=== PATIENT | female | born 1970 | race Caucasian/White ===

== ENCOUNTER → 2017-02-28 | Outpatient (CLI) | payer OTHER | LOC: FLAB 12:00 | PROVIDERS: ATTEND Physician Assistant | DX: R06.02 Shortness of breath (principal); R91.8 Other nonspecific abnormal finding of lung field ==

== ENCOUNTER → 2017-09-03 | Outpatient (CLI) | payer OTHER | LOC: BMCIMAGING 11:13 | PROVIDERS: ATTEND Emergency Medicine | DX: M79.662 Pain in left lower leg (principal) ==

== ENCOUNTER 2018-03-23 22:01 | Emergency (ER) | payer OTHER ==
[2018-03-23 22:57] LABS: PLATELET COUNT 191 10^3/uL (150-400)
[2018-03-23] MEDS: NS 1,000 ML IV ONE (23:37)
[2018-03-23] MEDS ORDERED: IOPAMIDOL (ISOVUE-300) 100 ML BTL ONE (23:55)
--- NOTE | 2018-03-24 00:27 | EDPHY ---
H & P Stated Complaint: poss bowel obstruction x2 hours Time Seen by Provider: 03/23/18 23:10 HPI/ROS: HPI The patient presents with abdominal pain which has been present for the last 2 hr which is intermittent, in her upper abdomen, achy in nature and feels like prior bowel obstructions. Patient has had history of for SBO she believes which have resolved spontaneously. The patient reports nausea without any vomiting. Her last bowel movement was this morning and she is having some difficulty passing gas. REVIEW OF SYSTEMS 10 systems were reviewed and negative with the exception of the elements mentioned in the history of present illness. PMHx: Recurrent SBO Soc Hx: Lives independently PHYSICAL General Appearance: Alert, no distress Eyes: Pupils equal and round no pallor or injection ENT, Mouth: Mucous membranes moist Respiratory: There are no retractions, lungs are clear to auscultation Cardiovascular: Regular rate and rhythm Gastrointestinal: Abdomen is soft and non-tender, no masses, bowel sounds normal Neurological: A&O, moves all extremities Skin: Warm and dry, no rashes Musculoskeletal: Neck is supple non tender Extremities: symmetrical, full range of motion Psychiatric: Patient is oriented X 3, there is no agitation Source: Patient Exam Limitations: No limitations - Personal History LMP (Females 10-55): 1-7 Days Ago Current Tetanus/Diphtheria Vaccine: Yes Tetanus Vaccine Date: < 10 YEARS - Medical/Surgical History Hx Asthma: No Hx Chronic Respiratory Disease: No Hx Diabetes: Yes Hx Cardiac Disease: No Hx Renal Disease: No Hx Cirrhosis: No Hx Alcoholism: No Hx HIV/AIDS: No Hx Splenectomy or Spleen Trauma: No Other PMH: PMH- SBO, THYROID, ETOH (RECOVERING). PSH- RECTAL PROLAPSE - Social History Smoking Status: Former smoker Constitutional: Initial Vital Signs Temperature (C) 37.1 C 03/23/18 22:03 Heart Rate 80 03/23/18 22:03 Respiratory Rate 16 03/23/18 22:03 Blood Pressure 114/88 H 03/23/18 22:03 O2 Sat (%) 96 03/23/18 22:03 O2 Delivery Mode Room Air Allergies/Adverse Reactions: adhesive tape Allergy (Uncoded 02/22/13 20:29) Hives Home Medications: Medication Instructions Recorded Levothyroxine [Synthroid 137 mcg 68.5 mcg PO DAILY06 06/19/16 (*)] Sertraline HCl [Zoloft 50mg (*)] 150 mg PO DAILY 06/19/16 Adderall 10 MG (*) 03/23/18 Medical Decision Making - Diagnostics Imaging Results: Imaging Impressions Abdomen CT 03/23/18 23:49 Impression: 1. Constipation. 2. No evidence of mechanical bowel obstruction, abscess, or localized intra- abdominal inflammatory process. 3. Normal appendix. Findings discussed with Emergency Department physician, Dodie Carbajal MD at 03/24/2018 0:20. Differential Diagnosis: This is a 47-year-old female with history of recurrent SBO due to several prior abdominal operations, all have improved with conservative measures who now presents with intermittent abdominal pain associated with nausea. Differential diagnosis includes partial SBO, SBO, constipation. In the emergency department, patient had labs drawn which were unremarkable. She received IV fluids. CT scan was obtained which demonstrated constipation only without any evidence of obstruction. She was sent home with magnesium citrate. I have advised her to use MiraLax as well. She is happy with this plan. She is completely pain-free. - Data Points Laboratory Results: Laboratory Results 03/23/18 22:42 03/23/18 22:42 03/23/18 03/23/18 03/23/18 22:42 22:42 22:42 WBC 7.65 10^3/uL 10^3/uL (3.80-9.50) RBC 4.79 10^6/uL 10^6/uL (4.18-5.33) Hgb 15.2 g/dL g/dL (12.6-16.3) Hct 43.8 % % (38.0-47.0) MCV 91.4 fL fL (81.5-99.8) MCH 31.7 pg pg (27.9-34.1) MCHC 34.7 g/dL g/dL (32.4-36.7) RDW 11.9 % % (11.5-15.2) Plt Count 191 10^3/uL 10^3/uL (150-400) MPV 9.7 fL fL (8.7-11.7) Neut % (Auto) 61.3 % % (39.3-74.2) Lymph % (Auto) 28.6 % % (15.0-45.0) [place] % (Auto) 7.7 % % (4.5-13.0) Eos % (Auto) 1.4 % % (0.6-7.6) Baso % (Auto) 0.7 % % (0.3-1.7) Nucleat RBC Rel Count 0.0 % % (0.0-0.2) Absolute Neuts (auto) 4.69 10^3/uL 10^3/uL (1.70-6.50) Absolute Lymphs (auto) 2.19 10^3/uL 10^3/uL (1.00-3.00) Absolute Monos (auto) 0.59 10^3/uL 10^3/uL (0.30-0.80) Absolute Eos (auto) 0.11 10^3/uL 10^3/uL (0.03-0.40) Absolute Basos (auto) 0.05 10^3/uL 10^3/uL (0.02-0.10) Absolute Nucleated RBC 0.00 10^3/uL 10^3/uL (0-0.01) Immature Gran % 0.3 % % (0.0-1.1) Immature Gran # 0.02 10^3/uL 10^3/uL (0.00-0.10) Sodium 138 mEq/L mEq/L (135-145) Potassium 4.0 mEq/L mEq/L (3.3-5.0) Chloride 101 mEq/L mEq/L (97-110) Carbon Dioxide 29 mEq/l mEq/l (22-31) Anion Gap 8 mEq/L mEq/L (8-16) BUN 12 mg/dL mg/dL (7-23) Creatinine 0.8 mg/dL mg/dL (0.6-1.0) Estimated GFR > 60 Glucose 88 mg/dL mg/dL (70-100) Calcium 9.6 mg/dL mg/dL (8.5-10.4) Beta HCG, Qual NEGATIVE Medications Given: Discontinued Medications Sodium Chloride (Ns) 1,000 mls @ 0 mls/hr IV EDNOW ONE; Wide Open PRN Reason: Protocol Stop: 03/23/18 23:36 Last Admin: 03/23/18 23:37 Dose: 1,000 mls Magnesium Citrate (Magnesium Citrate) 300 ml PO ONCE ONE Stop: 03/24/18 00:28 Last Admin: 03/24/18 00:34 Dose: 300 ml Departure - Departure Disposition: Home, Routine, Self-Care Clinical Impression: Constipation Qualifiers: Constipation type: unspecified constipation type Qualified Code(s): K59.00 - Constipation, unspecified Abdominal pain Qualifiers: Abdominal location: generalized Qualified Code(s): R10.84 - Generalized abdominal pain Condition: Good Instructions: Constipation (ED) Additional Instructions: Your CT scan results showed that you have constipation. Because of this, I am recommending that you start on magnesium citrate tonight. Then you can start using MiraLax 17 g once daily. If your symptoms return, you should return to the emergency department for recheck. Referrals: NONE *PRIMARY CARE P,. [Primary Care Provider] - As per Instructions
[2018-03-24 00:34] VITALS: BP 114/71
[2018-03-24] MEDS: MAGNESIUM CITRATE 300 ML BOTTLE PO ONE (00:34)
== END 2018-03-24 00:39 | disposition home or self-care (01) ==
DX: K59.00 Constipation, unspecified (principal)
CPT/HCPCS: Q9967

== ENCOUNTER 2018-04-19 18:29 | Emergency (ER) | payer OTHER ==
--- NOTE | 2018-04-19 19:30 | EDPHY ---
H & P Stated Complaint: SOB/CP Time Seen by Provider: 04/19/18 19:18 HPI/ROS: CHIEF COMPLAINT: Shortness of breath HISTORY OF PRESENT ILLNESS: The patient is a 47-year-old female who comes to the emergency department complaining of shortness of breath for the last month and a half. She has not had a fever or cough. She states that she has occasional midsternal chest pain. No recent travel. No leg swelling. No hormone use other than thyroid the medicine. No recent trauma or injury. Severity: Moderate Modifying factors: Exacerbated by anxiety REVIEW OF SYSTEMS: Constitutional: denies: chills, fever, recent illness, recent injury EENTM: denies: blurred vision, double vision, nose congestion Respiratory: See HPI Cardiac: See HPI denies: irregular heart rate, lightheadedness, palpitations Gastrointestinal/Abdominal: denies: abdominal pain, diarrhea, nausea, vomiting, blood streaked stools Genitourinary: denies: dysuria, frequency, hematuria, pain Musculoskeletal: denies: joint pain, muscle pain Skin: denies: lesions, rash, jaundice, bruising Neurological: denies: headache, numbness, paresthesia, tingling, dizziness, weakness Hematologic/Lymphatic: denies: blood clots, easy bleeding, easy bruising Immunologic/allergic: denies: HIV/AIDS, transplant 10 systems reviewed and negative except as noted EXAM: GENERAL: Well-appearing, well-nourished and in no acute distress. HEAD: Atraumatic, normocephalic. EYES: Pupils equal round and reactive to light, extraocular movements intact, sclera anicteric, conjunctiva are normal. ENT: TMs normal, nares patent, oropharynx clear without exudates. Moist mucous membranes. NECK: Normal range of motion, supple without lymphadenopathy or JVD. LUNGS: Breath sounds clear to auscultation bilaterally and equal. No wheezes rales or rhonchi. HEART: Regular rate and rhythm without murmurs, rubs or gallops. ABDOMEN: Soft, nontender, normoactive bowel sounds. No guarding, no rebound. No masses appreciated. BACK: No CVA tenderness, no spinal tenderness, step-offs or deformities EXTREMITIES: Normal range of motion, no pitting or edema. No clubbing or cyanosis. NEUROLOGICAL: Cranial nerves II through XII grossly intact. Normal speech, normal gait. 5/5 strength, normal movement in all extremities, normal sensation , normal reflexes PSYCH: Normal mood, normal affect. SKIN: Warm, dry, normal turgor, no visible rashes or lesions. Source: Patient Exam Limitations: No limitations - Personal History LMP (Females 10-55): 8-14 Days Ago Current Tetanus/Diphtheria Vaccine: Yes Tetanus Vaccine Date: < 10 YEARS - Medical/Surgical History Hx Asthma: No Hx Chronic Respiratory Disease: No Hx Diabetes: No Hx Cardiac Disease: No Hx Renal Disease: No Hx Cirrhosis: No Hx Alcoholism: No Hx HIV/AIDS: No Hx Splenectomy or Spleen Trauma: No Other PMH: PMH- SBO, THYROID, ETOH (RECOVERING). PSH- RECTAL PROLAPSE - Family History Significant Family History: No pertinent family hx - Social History Smoking Status: Former smoker Alcohol Use: Sober Drug Use: None Constitutional: Initial Vital Signs Temperature (C) 37.0 C 04/19/18 18:34 Heart Rate 80 04/19/18 18:34 Respiratory Rate 18 04/19/18 18:34 Blood Pressure 121/86 H 04/19/18 18:34 O2 Sat (%) 96 04/19/18 18:34 O2 Delivery Mode Room Air Allergies/Adverse Reactions: adhesive tape Allergy (Uncoded 04/19/18 18:39) Hives Home Medications: Medication Instructions Recorded Levothyroxine [Synthroid 137 mcg 68.5 mcg PO DAILY06 06/19/16 (*)] Sertraline HCl [Zoloft 50mg (*)] 150 mg PO DAILY 06/19/16 Adderall 10 MG (*) 03/23/18 Medical Decision Making - Diagnostics EKG Interpretation: An EKG obtained and was read and documented in trace view. Please see trace view for full reading and report. Sinus rhythm, no acute ischemic changes Imaging Results: Imaging Impressions Chest X-Ray 04/19/18 18:42 Impression: No acute pulmonary disease. Imaging: Discussed imaging studies w/ scallop dredger Radiologist ED Course/Re-evaluation: The patient's lab work is reassuring. Her troponin is negative after several weeks of symptoms. She feels that this is likely anxiety driven but states that she has not had any new stressors recently. She is reassured but frustrated that there is no specific diagnosis. Her sats here are 99%. Will refer her to Cardiology. Differential Diagnosis: Partial list of the Differential diagnosis considered include but were not limited to; chest pain, musculoskeletal pain, PE, pleurisy and although unlikely based on the history and physical exam, I also considered pneumonia, pneumothorax, dissection, aneurysm. I discussed these differential diagnoses and the plan with the patient as well as the usual and expected course. The patient understands that the diagnosis is provisional and that in medicine we are not always correct and that further workup is often warranted. Usual and customary warnings were given. All of the patient's questions were answered. The patient was instructed to return to the emergency department should the symptoms at all worsen or return, otherwise to followup with the physician as we discussed. - Data Points Laboratory Results: Laboratory Results 04/19/18 19:40 04/19/18 19:40 04/19/18 04/19/18 10 19:44 19:40 19:40 WBC RBC Hgb Hct MCV MCH MCHC RDW Plt Count MPV Neut % (Auto) Lymph % (Auto) [place] % (Auto) Eos % (Auto) Baso % (Auto) Nucleat RBC Rel Count Absolute Neuts (auto) Absolute Lymphs (auto) Absolute Monos (auto) Absolute Eos (auto) Absolute Basos (auto) Absolute Nucleated RBC Immature Gran % Immature Gran # D-Dimer Sodium 135 mEq/L mEq/L (135-145) Potassium 3.8 mEq/L mEq/L (3.3-5.0) Chloride 103 mEq/L mEq/L (97-110) Carbon Dioxide 23 mEq/l mEq/l (22-31) Anion Gap 9 mEq/L mEq/L (6-14) BUN 26 mg/dL H mg/dL (7-23) Creatinine 0.9 mg/dL mg/dL (0.6-1.0) Estimated GFR > 60 Glucose 87 mg/dL mg/dL (70-100) Calcium 9.0 mg/dL mg/dL (8.5-10.4) POC Troponin I 0.00 ng/mL ng/mL (0.00-0.08) Beta HCG, Qual NEGATIVE 04/19/18 04/19/18 19:40 19:40 WBC 6.92 10^3/uL 10^3/uL (3.80-9.50) RBC 4.46 10^6/uL 10^6/uL (4.18-5.33) Hgb 14.0 g/dL g/dL (12.6-16.3) Hct 40.9 % % (38.0-47.0) MCV 91.7 fL fL (81.5-99.8) MCH 31.4 pg pg (27.9-34.1) MCHC 34.2 g/dL g/dL (32.4-36.7) RDW 12.2 % % (11.5-15.2) Plt Count 170 10^3/uL 10^3/uL (150-400) MPV 9.6 fL fL (8.7-11.7) Neut % (Auto) 64.8 % % (39.3-74.2) Lymph % (Auto) 26.0 % % (15.0-45.0) [place] % (Auto) 7.1 % % (4.5-13.0) Eos % (Auto) 1.3 % % (0.6-7.6) Baso % (Auto) 0.7 % % (0.3-1.7) Nucleat RBC Rel Count 0.0 % % (0.0-0.2) Absolute Neuts (auto) 4.48 10^3/uL 10^3/uL (1.70-6.50) Absolute Lymphs (auto) 1.80 10^3/uL 10^3/uL (1.00-3.00) Absolute Monos (auto) 0.49 10^3/uL 10^3/uL (0.30-0.80) Absolute Eos (auto) 0.09 10^3/uL 10^3/uL (0.03-0.40) Absolute Basos (auto) 0.05 10^3/uL 10^3/uL (0.02-0.10) Absolute Nucleated RBC 0.00 10^3/uL 10^3/uL (0-0.01) Immature Gran % 0.1 % % (0.0-1.1) Immature Gran # 0.01 10^3/uL 10^3/uL (0.00-0.10) D-Dimer < 0.27 ug/mLFEU ug/mLFEU (0.00-0.50) Sodium Potassium Chloride Carbon Dioxide Anion Gap BUN Creatinine Estimated GFR Glucose Calcium POC Troponin I Beta HCG, Qual Point of Care Test Results: Chemistry 04/19/18 19:44 POC Troponin I 0.00 ng/mL ng/mL (0.00-0.08) Departure - Departure Disposition: Home, Routine, Self-Care Clinical Impression: Shortness of breath Chest pain Qualifiers: Chest pain type: unspecified Qualified Code(s): R07.9 - Chest pain, unspecified Condition: Fair Instructions: Chest Pain (ED) Referrals: Slava Scott MD [Primary Care Provider] - 1-2 days without fail Palma Whitmore MD [Medical Doctor] - 1-2 days without fail
--- NOTE | 2018-04-19 19:44 | CPEKG ---
Test Reason : OPEN Blood Pressure : / mmHG Vent. Rate : 069 BPM Atrial Rate : 069 BPM P-R Int : 174 ms QRS Dur : 088 ms QT Int : 404 ms P-R-T Axes : 067 053 035 degrees QTc Int : 433 ms Sinus rhythm Confirmed by Jerson Gonzalez ([id number]) on 04/19/2018 7:43:46 PM Referred By: Confirmed By:Jerson Gonzalez
[2018-04-19 19:52] LABS: PLATELET COUNT 170 10^3/uL (150-400)
[2018-04-19 20:35] VITALS: BP 100/81
== END 2018-04-19 20:33 | disposition home or self-care (01) ==
DX: R06.02 Shortness of breath (principal); R07.9 Chest pain, unspecified
CPT/HCPCS: 84484-PO

== ENCOUNTER 2018-11-19 00:41 | Inpatient (IN) | payer OTHER ==
[2018-11-19] MEDS ORDERED: HYDROmorphONE/DILAUDID 1 MG/ML INJ IVP ONE ×2 (00:59→02:53)
[2018-11-19] MEDS ORDERED: ONDANSETRON 4 MG/2 ML VIAL IVP ONE (00:59)
[2018-11-19] MEDS ORDERED: NS 1,000 ML IV ONE (00:59)
--- NOTE | 2018-11-19 01:02 | EDPHY ---
H & P Stated Complaint: ABD PAIN, N,V THINKS SHE KEVIN A BOWEEL OBSTRUCTION Time Seen by Provider: 11/19/18 00:49 HPI/ROS: Chief Complaint: Abdominal pain, nausea, vomiting HPI: 48-year-old woman with a history of multiple abdominal surgeries including a rectal prolapse repair, x2, cholecystectomy is presenting with abdominal pain nausea vomiting she began earlier today. Patient states her symptoms are consistent with prior small-bowel obstructions. Pain is about an 8/10. She has had multiple soles of vomiting. No diarrhea. She does have a history of chronic constipation. Is also complaining of low back pain on the right-hand side. No urinary urgency or frequency. No fevers or chills. No chest pain or shortness of breath. ROS: 10 systems were reviewed and were negative except those elements noted in the HPI. PMH: Obstructions, rectal prolapse repair, C-sections x2, cholecystectomy Social History: No smoking, no alcohol, no recreational drug use Family History: non-contributory Physical Exam: Gen: Awake, Alert, uncomfortable appearing HEENT: Nose: no rhinorrhea Eyes: PERRLA, EOMI Mouth: Moist mucosa Neck: Supple, no JVD Chest: nontender, lungs clear to auscultation Heart: S1, S2 normal, no murmur Abd: Soft, non-tender, no guarding Back: no CVA tenderness, no midline tenderness Ext: no edema, non-tender Skin: no rash Neuro: CN II-XII intact, Sensation grossly intact, Strength 5/5 in bilateral upper and lower extremities - Personal History Current Tetanus/Diphtheria Vaccine: Yes Current Tetanus Diphtheria and Acellular Pertussis (TDAP): Yes Tetanus Vaccine Date: < 10 YEARS - Medical/Surgical History Hx Asthma: No Hx Chronic Respiratory Disease: No Hx Diabetes: No Hx Cardiac Disease: No Hx Renal Disease: No Hx Cirrhosis: No Hx Alcoholism: No Hx HIV/AIDS: No Hx Splenectomy or Spleen Trauma: No Other PMH: PMH- SBO, THYROID, ETOH (RECOVERING). PSH- RECTAL PROLAPSE - Social History Smoking Status: Former smoker Constitutional: Initial Vital Signs Temperature (C) 36.6 C 11/19/18 00:44 Heart Rate 93 11/19/18 00:44 Respiratory Rate 18 11/19/18 00:44 Blood Pressure 82/61 L 11/19/18 00:44 O2 Sat (%) 96 11/19/18 00:44 O2 Delivery Mode Room Air Allergies/Adverse Reactions: adhesive tape Allergy (Uncoded 11/19/18 00:46) Hives Home Medications: Medication Instructions Recorded Levothyroxine [Synthroid 137 mcg 68.5 mcg PO DAILY06 06/19/16 (*)] Sertraline HCl [Zoloft 50mg (*)] 150 mg PO DAILY 06/19/16 Adderall 10 MG (*) 03/23/18 Medical Decision Making - Diagnostics Imaging Results: EXAM: CT Abdomen and Pelvis with Intravenous Contrast CLINICAL HISTORY: Abdominal pain, possible SBO TECHNIQUE: Axial computed tomography images of the abdomen and pelvis with intravenous contrast. CONTRAST: With; ISOVUE 300 100ml COMPARISON: CT abdomen and pelvis 06/19/2016 FINDINGS: LUNG BASES: No basilar airspace consolidation or pleural effusion. LIVER: Unremarkable. GALLBLADDER AND BILE DUCTS: Surgically absent. PANCREAS: Unremarkable. SPLEEN: Unremarkable. ADRENAL GLANDS: Unremarkable. KIDNEYS, URETERS, AND BLADDER: Unremarkable. No hydronephrosis or nephrolithiasis. No ureteral or bladder calculi. STOMACH AND BOWEL: Multiple dilated fluid-filled loops of small bowel centrally within the abdomen measuring up to 3.3 cm. Some segments of blue demonstrating circumferential wall thickening and hyperenhancement, axial image 49/83. There is equalization of some small bowel loops to get a bone slow transit. There is vascular engorgement of the central mesentery. No hypoenhancing bowel melendez. Multiple loops closely abutting the ventral peritoneal surface. Surgical changes of the distal colon. APPENDIX: No CT evidence for appendicitis. PERITONEUM: No free fluid. No free air. LYMPH NODES: No lymphadenopathy. REPRODUCTIVE: Unremarkable as visualized. Prior . VASCULATURE: No aortic aneurysm. BONES: No fracture or suspicious osseous abnormality. ABDOMINAL WALL AND SOFT TISSUES: Unremarkable. IMPRESSION: Multiple dilated segments of fluid-filled small bowel loops which are closely opposed to the ventral peritoneal surface suggestive of adhesions. Central mesenteric venous engorgement. No high-grade bowel obstruction or evidence of infarction. Large colonic stool burden. ELECTRONICALLY SIGNED BY: Yayo Celeste DO November 19, 2018 2:00:26 AM MDT ED Course/Re-evaluation: CT scan results noted tree consistent with small-bowel obstruction. I discussed with Dr. Moreno. He will consult on the patient. He is requesting admission to the hospitalist. I have paged Dr. Hernandez. - Data Points Laboratory Results: Laboratory Results 11/19/18 01:00 11/19/18 01:00 11/19/18 11/19/18 11/19/18 01:00 01:00 01:00 WBC 14.29 10^3/uL H 10^3/uL (3.80-9.50) RBC 5.08 10^6/uL 10^6/uL (4.18-5.33) Hgb 16.1 g/dL g/dL (12.6-16.3) Hct 46.5 % % (38.0-47.0) MCV 91.5 fL fL (81.5-99.8) MCH 31.7 pg pg (27.9-34.1) MCHC 34.6 g/dL g/dL (32.4-36.7) RDW 11.9 % % (11.5-15.2) Plt Count 237 10^3/uL 10^3/uL (150-400) MPV 9.3 fL fL (8.7-11.7) Neut % (Auto) 79.4 % H % (39.3-74.2) Lymph % (Auto) 12.2 % L % (15.0-45.0) [place] % (Auto) 6.0 % % (4.5-13.0) Eos % (Auto) 1.2 % % (0.6-7.6) Baso % (Auto) 0.4 % % (0.3-1.7) Nucleat RBC Rel Count 0.0 % % (0.0-0.2) Absolute Neuts (auto) 11.34 10^3/uL H 10^3/uL (1.70-6.50) Absolute Lymphs (auto) 1.75 10^3/uL 10^3/uL (1.00-3.00) Absolute Monos (auto) 0.86 10^3/uL H 10^3/uL (0.30-0.80) Absolute Eos (auto) 0.17 10^3/uL 10^3/uL (0.03-0.40) Absolute Basos (auto) 0.06 10^3/uL 10^3/uL (0.02-0.10) Absolute Nucleated RBC 0.00 10^3/uL 10^3/uL (0-0.01) Immature Gran % 0.8 % % (0.0-1.1) Immature Gran # 0.11 10^3/uL H 10^3/uL (0.00-0.10) Sodium 138 mEq/L mEq/L (135-145) Potassium 3.7 mEq/L mEq/L (3.5-5.2) Chloride 102 mEq/L mEq/L (97-110) Carbon Dioxide 26 mEq/l mEq/l (22-31) Anion Gap 10 mEq/L mEq/L (6-14) BUN 17 mg/dL mg/dL (7-23) Creatinine 0.9 mg/dL mg/dL (0.6-1.0) Estimated GFR > 60 Glucose 110 mg/dL H mg/dL (70-100) Calcium 9.7 mg/dL mg/dL (8.5-10.4) Total Bilirubin 0.3 mg/dL mg/dL (0.1-1.4) AST 30 IU/L IU/L (14-46) ALT 34 IU/L IU/L (9-52) Alkaline Phosphatase 66 IU/L IU/L (38-126) Total Protein 7.4 g/dL g/dL (6.3-8.2) Albumin 4.6 g/dL g/dL (3.5-5.0) Lipase 87 IU/L IU/L (23-300) Beta HCG, Qual NEGATIVE Medications Given: Discontinued Medications Hydromorphone HCl (Dilaudid) 0.5 mg IVP EDNOW ONE Stop: 11/19/18 01:00 Last Admin: 11/19/18 01:30 Dose: 0.5 mg Sodium Chloride (Ns) 1,000 mls @ 0 mls/hr IV ONCE ONE; Wide Open PRN Reason: Protocol Stop: 11/19/18 01:00 Last Admin: 11/19/18 01:24 Dose: 1,000 mls Ondansetron HCl (Zofran) 4 mg IVP EDNOW ONE Stop: 11/19/18 01:00 Last Admin: 11/19/18 01:24 Dose: 4 mg Departure - Departure Disposition: [facility] Acute Clinical Impression: Bowel obstruction Condition: Fair Referrals: Slava Scott MD [Primary Care Provider] - As per Instructions
[2018-11-19 01:15] LABS: PLATELET COUNT 237 10^3/uL (150-400)
[2018-11-19] MEDS ORDERED: IOPAMIDOL (ISOVUE-300) 100 ML BTL ONE (01:19)
[2018-11-19] MEDS ORDERED: ONDANSETRON 4 MG/2 ML VIAL IVP PRN ×2 (02:18→02:55)
[2018-11-19] MEDS ORDERED: ONDANSETRON DISINTEGRATING 4 MG TAB PO PRN (02:18)
[2018-11-19] MEDS ORDERED: ACETAMINOPHEN 325 MG TAB PO PRN (02:18)
--- NOTE | 2018-11-19 02:53 | SOAPPROG ---
SOAP Progress Note Assessment/Plan: Assessment: 48 female with recurrent sbo phx carlos alberto, rectopexy, meds aderal, synthroid, zoloft all tape heent nonicteric chest clear cor rr abd soft, distended, nontender, midline lower scar Plan:admit, ivs, ng, 2way in am/ surgery if fails to resolve 11/19/18 02:50 Objective: Vital Signs Temp Pulse Resp BP Pulse Ox 36.6 C 77 16 103/61 93 11/19/18 00:44 11/19/18 02:05 11/19/18 02:05 11/19/18 02:05 11/19/18 02:05 ICD10 Worksheet Patient Problems: Problems Problem Status Onset Bowel obstruction Acute
[2018-11-19] MEDS: PROMETHAZINE HCL 25 MG/ML INJ IVP PRN ×2 (03:05→12:47)
--- NOTE | 2018-11-19 03:25 | PDGENHP ---
History and Physical - Chief Complaint Nausea, abdominal pain - History of Present Illness 48 yo F w/ hx of multiple abdominal surgeries and prior bouts of SBO presents with nausea, vomiting, and abdominal pain. Her symptoms developed this afternoon when she first noticed nausea. This then progressed to vomiting and abdominal pain. She was initially improved after therapy in the ED but her symptoms have now returned. A CT scan in the ED is suggestive of SBO. She is being admitted for management of this. Review of the EMR shows that she was last admitted for this in 2016. During that episode she resolved with medical management only. Dr. Cornelius Moreno was consulted in the ED and has evaluated the patient. Case discussed with ED physician Dr. Talley. History Information - Allergies/Home Medication List Allergies/Adverse Reactions: adhesive tape Allergy (Uncoded 11/19/18 00:46) Hives Home Medications: Levothyroxine [Synthroid 137 mcg (*)] 68.5 mcg PO DAILY06 06/19/16 [Last Taken 06/19/16] Sertraline HCl [Zoloft 50mg (*)] 150 mg PO DAILY 06/19/16 [Last Taken 06/19/16] Adderall 10 MG (*) 03/23/18 [Last Taken Unknown] I have personally reviewed and updated: family history, medical history - Past Medical History Additional medical history: Hypothyroid. ADHD. Depression - Surgical History Reports: cholecystectomy Additional surgical history: Rectopexy. - Family History Additional family history: No family hx of IBD - Social History Smoking Status: Former smoker Review of Systems Review of Systems: ROS: 10pt was reviewed & negative except for what was stated in HPI & below Physical Exam Physical Exam: Temp Pulse Resp BP Pulse Ox 36.6 C 77 16 103/61 93 11/19/18 00:44 11/19/18 02:05 11/19/18 02:05 11/19/18 02:05 11/19/18 02:05 Constitutional: appears nourished, uncomfortable Eyes: PERRL, EOMI Ears, Nose, Mouth, Throat: moist mucous membranes, no oral mucosal ulcers Cardiovascular: regular rate and rhythym, no murmur, rub, or gallop Respiratory: no respiratory distress, clear to auscultation Gastrointestinal: tenderness (Diffuse), distension, No guarding, No rebound Skin: warm, normal color Musculoskeletal: full muscle strength, no muscle tenderness Neurologic: AAOx3, CN II-XII Intact Psychiatric: interacting appropriately, anxious Lab Data & Imaging Review 11/19/18 01:00 11/19/18 01:00 WBC 14.29 10^3/uL (3.80-9.50) H 11/19/18 01:00 RBC 5.08 10^6/uL (4.18-5.33) 11/19/18 01:00 Hgb 16.1 g/dL (12.6-16.3) 11/19/18 01:00 Hct 46.5 % (38.0-47.0) 11/19/18 01:00 MCV 91.5 fL (81.5-99.8) 11/19/18 01:00 MCH 31.7 pg (27.9-34.1) 11/19/18 01:00 MCHC 34.6 g/dL (32.4-36.7) 11/19/18 01:00 RDW 11.9 % (11.5-15.2) 11/19/18 01:00 Plt Count 237 10^3/uL (150-400) 11/19/18 01:00 MPV 9.3 fL (8.7-11.7) 11/19/18 01:00 Neut % (Auto) 79.4 % (39.3-74.2) H 11/19/18 01:00 Lymph % (Auto) 12.2 % (15.0-45.0) L 11/19/18 01:00 [place] % (Auto) 6.0 % (4.5-13.0) 11/19/18 01:00 Eos % (Auto) 1.2 % (0.6-7.6) 11/19/18 01:00 Baso % (Auto) 0.4 % (0.3-1.7) 11/19/18 01:00 Nucleat RBC Rel Count 0.0 % (0.0-0.2) 11/19/18 01:00 Absolute Neuts (auto) 11.34 10^3/uL (1.70-6.50) H 11/19/18 01:00 Absolute Lymphs (auto) 1.75 10^3/uL (1.00-3.00) 11/19/18 01:00 Absolute Monos (auto) 0.86 10^3/uL (0.30-0.80) H 11/19/18 01:00 Absolute Eos (auto) 0.17 10^3/uL (0.03-0.40) 11/19/18 01:00 Absolute Basos (auto) 0.06 10^3/uL (0.02-0.10) 11/19/18 01:00 Absolute Nucleated RBC 0.00 10^3/uL (0-0.01) 11/19/18 01:00 Immature Gran % 0.8 % (0.0-1.1) 11/19/18 01:00 Immature Gran # 0.11 10^3/uL (0.00-0.10) H 11/19/18 01:00 Sodium 138 mEq/L (135-145) 11/19/18 01:00 Potassium 3.7 mEq/L (3.5-5.2) 11/19/18 01:00 Chloride 102 mEq/L (97-110) 11/19/18 01:00 Carbon Dioxide 26 mEq/l (22-31) 11/19/18 01:00 Anion Gap 10 mEq/L (6-14) 11/19/18 01:00 BUN 17 mg/dL (7-23) 11/19/18 01:00 Creatinine 0.9 mg/dL (0.6-1.0) 11/19/18 01:00 Estimated GFR > 60 11/19/18 01:00 Glucose 110 mg/dL (70-100) H 11/19/18 01:00 Calcium 9.7 mg/dL (8.5-10.4) 11/19/18 01:00 Total Bilirubin 0.3 mg/dL (0.1-1.4) 11/19/18 01:00 AST 30 IU/L (14-46) 11/19/18 01:00 ALT 34 IU/L (9-52) 11/19/18 01:00 Alkaline Phosphatase 66 IU/L (38-126) 11/19/18 01:00 Total Protein 7.4 g/dL (6.3-8.2) 11/19/18 01:00 Albumin 4.6 g/dL (3.5-5.0) 11/19/18 01:00 Lipase 87 IU/L (23-300) 11/19/18 01:00 Beta HCG, Qual NEGATIVE 11/19/18 01:00 Assessment & Plan Assessment: 48 yo F w/ hx of multiple abdominal surgeries and bouts of SBO presents with recurrent SBO. Plan: 1. SBO, recurrent - In the setting of multiple abdominal surgeries. CT scan reveals multiple loops of dilated small bowel. She was last admitted for the same in 2015. - Admit for observation - Will place NGT - Repeat abdominal XR in the AM - NPO, mIVF - Anti-emetics, pain control PRN - Surgery (Dr. Moreno) consulted, appreciate assistance 2. Hypothyroid - Continue LTX once able to take PO 3. Depression Diet - NPO, mIVF Code - Full Ppx - SCDs Dispo - Admit under observation status
[2018-11-19] MEDS: NS 1,000 ML IV SCH (03:53)
[2018-11-19 08:15] LABS: PLATELET COUNT 207 10^3/uL (150-400)
--- NOTE | 2018-11-19 08:55 | SOAPPROG ---
SOAP Progress Note Assessment/Plan: Assessment/Plan: 48 Y F c recurrent SBO. Hx carlos alberto, csxn. SBO's occur about once a year, never has needed surgery for it. Continue bowel rest, NG decompression, and supportive care. AXR today. Suspect she may need surgery. If AXR better, then might clamp tube and start clears +/- SBFT. S: not passing gas. more comfortable. no nausea. cramping improved. concerned that she's missing her kids' end of year school activities. O: alert, nad ncat, ng in place mmm ctab anteriorly rrr abd soft, rare BS 11/19/18 08:53 Objective: Vital Signs Temp Pulse Resp BP Pulse Ox 36.9 C 66 16 119/74 94 11/19/18 07:41 11/19/18 07:41 11/19/18 07:41 11/19/18 07:41 11/19/18 07:41 Laboratory Results 11/19/18 08:10 11/19/18 08:10 11/18/18 11/19/18 11/20/18 05:59 05:59 05:59 Intake Total 1300 Output Total 350 200 Balance 950 -200 ICD10 Worksheet Patient Problems: Problems Problem Status Onset Bowel obstruction Acute
[2018-11-19] MEDS: HYDROmorphONE/DILAUDID 1 MG/ML INJ IVP PRN ×3 (09:52→21:15)
[2018-11-19] MEDS ORDERED: ACETAMINOPHEN 650 MG SUPP PR PRN (12:53)
--- NOTE | 2018-11-19 15:06 | PDMN ---
Medical Necessity Medical necessity: Change to inpt as of 11/19/18, meets inpt criteria per MD order and MCG M-210, Intestinal Obstruction, 2 days, inpt adm indicated for: SBO requiring NG decompression and supportive care, IV Dilaudid for pain, IV Phenergan for nausea. 48 y/o w/hx mult abd surgeries admitted for recurrent SBO (last adm for this in 2015). Initial CT revealed mult loops of dilated sm bowel , abd x-ray this AM suggests continued ileus/bowel obstruction. Est LOS>2MN for ongoing eval/management of above.
--- NOTE | 2018-11-19 15:19 | HOSPPROG ---
Hospitalist Progress Note Assessment/Plan: 48 [facility], admitted with recurrentl SBO. 1. SBO, recurrent - In the setting of multiple abdominal surgeries. I reviewed the CT scan and ab film today. consistent with SBO. - Looks worse today clinically with severe nausea and vomiting and pain, requiring IV dilaudid and repeated doses of phenergan. - Repeat abdominal film pending - NPO, mIVF - Anti-emetics, pain control PRN - Discussed with surgery, may need Or if fails to improve with medical therapy. 2. Hypothyroid - Continue LTX once able to take PO 3. Depression 4)intractable NV- due to SBO. NG in place, zofran, phenergan ordered. surgery consulted. Diet - NPO, mIVF Code - Full Ppx - SCDs Dispo - change to inp. Subjective: patient actively repeated throwing up, with terrible pain, and headache. Objective: Vital Signs Temp Pulse Resp BP Pulse Ox 36.7 C 82 16 101/71 94 11/19/18 12:34 11/19/18 12:34 11/19/18 12:34 11/19/18 12:34 11/19/18 12:34 - Physical Exam Constitutional: obese, uncomfortable Eyes: PERRL, anicteric sclera, EOMI Ears, Nose, Mouth, Throat: moist mucous membranes, hearing normal, ears appear normal, no oral mucosal ulcers Cardiovascular: regular rate and rhythym, no murmur, rub, or gallop Respiratory: no respiratory distress, no rales or rhonchi, clear to auscultation Gastrointestinal: distension, other (absent bowel sounds, TTP diffusely, no guarding. ) Genitourinary: no bladder fullness, no bladder tenderness, no renal bruits Skin: no rashes or abrasions, no fluctuance, no induration Musculoskeletal: full muscle strength, no muscle tenderness, normal joint ROM Neurologic: AAOx3, sensation intact bilaterally Psychiatric: interacting appropriately, not anxious, not encephalopathic, thought process linear Lymph, Heme, Immunologic: no cervical LAD, no supraclavicular LAD ICD10 Worksheet Patient Problems: Problems Problem Status Onset Bowel obstruction Acute
[2018-11-19] MEDS ORDERED: BENZOCAINE 57 G CAN HURRICAINE MM PRN (16:09)
--- NOTE | 2018-11-19 18:56 | SOAPPROG ---
SOAP Progress Note Assessment/Plan: Assessment: 48 female with recurrent sbo phx carlos alberto, rectopexy, meds aderal, synthroid, zoloft all tape heent nonicteric chest clear cor rr abd soft, distended, nontender, midline lower scar Plan:admit, ivs, ng, 2way in am/ surgery if fails to resolve 11/19/18 02:50 11/19/18 18:56 AFEBRILE WITH NORMAL WHITE COUNT BUT STILL NO FLATUS OR BOWEL MOVEMENT/SOME DRY HEAVES WITH THE NG CLEAN DO A SUGGEST CONSTIPATION RATHER THAN SMALL-BOWEL OBSTRUCTION AT THIS POINT ABDOMEN SOFT NONDISTENDED PLAN CONTINUE NG SUCTION OVERNIGHT Objective: Vital Signs Temp Pulse Resp BP Pulse Ox 36.6 C 74 16 110/80 92 11/19/18 16:24 11/19/18 16:24 11/19/18 16:24 11/19/18 16:24 11/19/18 16:24 11/18/18 11/19/18 11/20/18 05:59 05:59 05:59 Intake Total 1195 Output Total 450 Balance 745 ICD10 Worksheet Patient Problems: Problems Problem Status Onset Bowel obstruction Acute
[2018-11-20] MEDS: NS 1,000 ML IV SCH (00:07)
[2018-11-20] MEDS: PROMETHAZINE HCL 25 MG/ML INJ IVP PRN (01:22)
[2018-11-20] MEDS: LEVOTHYROXINE 75 MCG TAB PO SCH (06:44)
[2018-11-20] MEDS: HYDROmorphONE/DILAUDID 1 MG/ML INJ IVP PRN (06:45)
[2018-11-20] MEDS: SERTRALINE HCL 50 MG TAB PO SCH (08:25)
--- NOTE | 2018-11-20 13:52 | HOSPPROG ---
Hospitalist Progress Note Assessment/Plan: 48 year old female [facility] of [facility], admitted with recurrentl SBO. 1. SBO, recurrent - In the setting of multiple abdominal surgeries. I reviewed the CT scan and ab film today. consistent with SBO. - Looks worse today clinically with severe nausea and vomiting and pain, requiring IV dilaudid and repeated doses of phenergan. - Repeat abdominal film today reviewed by myself and looks improved. - NPO, mIVF - Anti-emetics, pain control PRN - Discussed with surgery, sbft today, depending on results, might consider removing NGT and advancing to clears. 2. Hypothyroid - Continue LTX once able to take PO 3. Depression 4)intractable NV- due to SBO. NG in place, zofran, phenergan ordered. surgery consulted. Diet - NPO, mIVF Code - Full Ppx - SCDs Dispo - remain inp Subjective: feels better. No ab pain. mild headache. Objective: Vital Signs Temp Pulse Resp BP Pulse Ox 36.6 C 94 18 115/86 H 93 11/20/18 12:00 11/20/18 12:00 11/20/18 12:00 11/20/18 12:00 11/20/18 12:00 11/19/18 11/20/18 11/21/18 05:59 05:59 05:59 Intake Total 1395 Output Total 450 675 Balance 945 -675 - Physical Exam Constitutional: obese, uncomfortable Eyes: PERRL, anicteric sclera, EOMI Ears, Nose, Mouth, Throat: moist mucous membranes, hearing normal, ears appear normal, no oral mucosal ulcers Cardiovascular: regular rate and rhythym, no murmur, rub, or gallop Respiratory: no respiratory distress, no rales or rhonchi, clear to auscultation Gastrointestinal: soft, non-tender abdomen, other (decreased bowel sounds, but present. ) Genitourinary: no bladder fullness, no bladder tenderness, no renal bruits Skin: no rashes or abrasions, no fluctuance, no induration Musculoskeletal: full muscle strength, no muscle tenderness, normal joint ROM Neurologic: AAOx3, sensation intact bilaterally Psychiatric: interacting appropriately, not anxious, not encephalopathic, thought process linear Lymph, Heme, Immunologic: no cervical LAD, no supraclavicular LAD ICD10 Worksheet Patient Problems: Problems Problem Status Onset Bowel obstruction Acute
--- NOTE | 2018-11-20 15:16 | ASMTCMCOM ---
CM Note CM Note Notes: Pt is a 48 y/o female admitted for nausea and abdominal pain. Pt will most likely d/c home without any needs when medically stable. No therapies ordered at this time. CM available for changes. Plan: Independent Date Signed: 11/20/2018 03:15 PM Electronically Signed By:RHEA Cornejo
[2018-11-20] MEDS ORDERED: LORazepam 0.5 MG TAB PO PRN (15:31)
[2018-11-21] MEDS: LEVOTHYROXINE 75 MCG TAB PO SCH (05:38)
[2018-11-21 07:07] VITALS: BP 126/76
[2018-11-21] MEDS: SERTRALINE HCL 50 MG TAB PO SCH (08:08)
--- NOTE | 2018-11-21 11:02 | SOAPPROG ---
SOAP Progress Note Assessment/Plan: Assessment/plan: 48 y/o F admitted with recurrent SBO SBFT yesterday showed normal transit time. Tolerating regular diet. Passing flatus and having BMs. Dispo: d/c home today. S: Feeling much better. Denies pain. O: Alert Afebrile RRR No increased WOB Abdomen soft, nontender, normoactive BS 11/21/18 11:00 Objective: Vital Signs Temp Pulse Resp BP Pulse Ox 36.9 C 70 16 126/76 H 93 11/21/18 07:05 11/21/18 07:05 11/21/18 07:05 11/21/18 07:05 11/21/18 07:05 11/20/18 11/21/18 11/22/18 05:59 05:59 05:59 Intake Total 1395 2400 Output Total 450 675 Balance 945 1725 ICD10 Worksheet Patient Problems: Problems Problem Status Onset Bowel obstruction Acute
--- NOTE | 2018-11-21 15:25 | ASDISCHSUM ---
Discharge Information Plan Status:Home with No Needs Medically Cleared to Leave: Discharge Date:11/21/2018 11:12 AM CM D/C Disposition:Home, Routine, Self-Care ADT D/C Disposition:Home, Routine, Self-Care Projected Discharge Date:11/21/2018 11:12 AM Transportation at D/C:Self Discharge Delay Reason: Follow-Up Date:11/21/2018 11:12 AM Discharge Slot: Final Diagnosis: Placement Information Patient Contact Information Contact Name:LUISITO Relationship: Address:[address] [place] [address] Work Phone: City:[place] Alternate Phone: [facility]/Zip Code:[place] [address] Email: Financial Information Financial Class:BC Primary Plan Desc:[facility] Primary Plan Number:[id number] Secondary Plan Desc: Secondary Plan Number: Assessment Information LACE LACE Length of stay for Answers: 1 day current admission Acuity / Level of Answers: Yes Care: Did the patient have an inpatient admission? Comorbidities - select Answers: Opioid dependence all that apply / Chronic pain Other Notes: Hypothyroid # of Emergency department Answers: 1-2 visits in the last 6 months Social determinants Answers: Mental health diagnosis (anxiety, depression, pers onality disorders, etc.) Score: 13 Date Signed: 11/21/2018 03:23 PM Electronically Signed By:RHEA Cortes [facility] CM Progress Note CM Note CM Note Notes: Pt is a 48 y/o female admitted for nausea and abdominal pain. Pt will most likely d/c home without any needs when medically stable. No therapies ordered at this time. CM available for changes. Plan: Independent Date Signed: 11/20/2018 03:15 PM Electronically Signed By:RHEA Cornejo Case Management Discharge Plan Note Case Management Discharge Discharge Order Complete? Answers: Yes Patient to Obtain Answers: Independently Medications Discharge Comments Notes: Pt is being discharged independently. CM provided her with clothes to go home in per her request. Pt said she was going to take a lyft home and did not need help obtaining meds or with follow-up appts. No other CM needs identified at this time. Date Signed: 11/21/2018 03:23 PM Electronically Signed By:RHEA Cortes Intervention Information
--- NOTE | 2018-11-21 16:50 | PDDCSUM ---
Discharge Summary Discharge Summary: Date of Admission: 11/19/2018 Date of Discharge: 11/21/2018 Consultants: general surgery Discharge Diagnoses: 1. Small bowel obstruction, resolved 2. Nausea/vomiting, resolved 3. Hypothyroidism Brief Hospital Course: 48yo F with history of recurrent SBO related to adhesions from prior intra- abdominal surgeries presented with intractable nausea and vomiting found to have SBO. She was treated conservatively and with nasogastric tube decompression. General surgery was consulted. She slowly improved. A small bowel follow through showed resolution of obstruction and normal small bowel transit time. Her diet advanced and she was tolerating PO at time of discharge. Medications: Please refer to EMR for complete list. No changes were made. Follow Up Plan: 1. PCP visit in 1-2 weeks. Consider general surgery outpatient follow up for recurrent SBO. Physical Exam: Vitals reviewed, afebrile. Alert and oriented, rrr, lungs clear, abdomen soft and nt, no leg edema, no rashes.
--- NOTE | 2018-11-27 12:09 | GCON ---
[f rep st] CONSULTATION DATE OF CONSULTATION: 11/19/2018 HISTORY OF PRESENT ILLNESS: Patient is a 48-year-old female who was admitted for recurrent small bow el obstruction. I was consulted for evaluation. She has been having abdominal pain with some nausea and vomiting for several days. She has a history of rectal prolapse surgery. She has also had C-se ctions and cholecystectomy. CT scan suggests a small bowel obstruction. She describes the pain is q uite severe with multiple episodes of vomiting. She has had no diarrhea and she has no history of re gular constipation. She has had no recent abdominal trauma. PAST MEDICAL HISTORY: Includes small bowel obstructions, rectal prolapse surgery, C-sections, cholec ystectomy. ALLERGIES: Adhesive tape. MEDICATIONS: Include Adderall, Zoloft, and Synthroid. SOCIAL HISTORY: Reveals she does not smoke. REVIEW OF SYSTEMS: Negative on a full 10-point review, except as related to the HPI. FAMILY HISTORY: Noncontributory. PHYSICAL EXAMINATION: GENERAL: An alert uncomfortable 48-year-old female in no acute distress. HEA D/NECK: Reveals no icterus. No adenopathy. No oral lesions. She is PERRLA. Neck is supple. Full range of motion. CHEST: Clear and symmetric. COR: Regular rhythm. ABDOMEN: Soft, slightly dist ended with decreased bowel sounds. There are no obvious hernias or abdominal masses. EXTREMITIES: Reveal full range of motion. Full pulses. NEUROLOGIC: Exam is physiologic and symmetric. PSYCHIAT AISLINN: Reveals her to be alert, oriented, cooperative. IMPRESSION: Small bowel obstruction. Admit for evaluation, nasogastric suction, intravenous fluids, and possible surgery if not improving. /[id number]/MODL
== END 2018-11-21 11:12 | disposition home or self-care (01) | DRG 390 ==
LOC: F1N 04:00 → OBSVTOIN 14:48
PROVIDERS: ADMIT Student in an Organized Health Care Education/Training Program; ATTEND Internal Medicine
PROC: 0D9670Z Drainage of Stomach with Drainage Device, Via Natural or Artificial Opening (ICD-10-PCS; principal; 2018-11-19)
DX: K56.609 Unspecified intestinal obstruction, unspecified as to partial versus complete obstruction (principal); E03.9 Hypothyroidism, unspecified; F32.9 Major depressive disorder, single episode, unspecified; E86.9 Volume depletion, unspecified
CPT/HCPCS: 96374; J1170; J2405; J2550; Q9967